=== PATIENT | female | born 1985 | race African-American/Black ===

== ENCOUNTER 2023-05-07 06:16 | Inpatient (IN) | payer MEDICAID ==
[2023-05-07] MEDS ORDERED: AMPICILLIN 2GM+NS 100ML 100 ML IV ONE (06:23)
[2023-05-07] MEDS ORDERED: AMPICILLIN 2GM+NS 100ML 100 ML IV SCH (06:30)
[2023-05-07] MEDS ORDERED: OXYTOCIN-LR 30 UNITS/500ML 500 ML IV SCH ×3 (06:30→23:00)
[2023-05-07 07:20] LABS: APPEARANCE,URINE CLOUDY (CLEAR); BILIRUBIN,URINE NEGATIVE (NEGATIVE); COLOR,URINE LIGHT-YELLOW (YELLOW); GLUCOSE, URINE (UA) NEGATIVE (NEGATIVE); KETONES,URINE NEGATIVE (NEGATIVE); LEUKOCYTE ESTERASE ,URINE 250 Leu/uL (NEGATIVE); NITRATE,URINE NEGATIVE (NEGATIVE); OCCULT BLOOD,URINE NEGATIVE (NEGATIVE); PH,URINE 6.5 (5.0-8.0); PROTEIN,URINE NEGATIVE (NEGATIVE); UROBILINOGEN,URINE 0.2 mg/dL (0.2-1.0)
[2023-05-07] MEDS ORDERED: LACTATED RINGERS 500 ML 500 ML IV PRN (07:30)
[2023-05-07] MEDS ORDERED: NALOXONE HCL 0.4 MG/1 ML ML IV PRN (07:30)
[2023-05-07] MEDS ORDERED: PROMETHAZINE HCL 25 MG/ML 1ML AMPULE IM PRN (07:30)
[2023-05-07] MEDS ORDERED: EPHEDRINE SULFATE 50 MG/ML AMPULE IVP PRN (07:30)
[2023-05-07] MEDS ORDERED: MEPERIDINE-PF 50 MG/ML SYG IM PRN (07:30)
[2023-05-07 07:32] LABS: ADD UA MICROSCOPIC YES
[2023-05-07 07:35] LABS: HEMATOCRIT 35.7 % (36-48); MEAN CORPUSCULAR HEMOGLOBIN 28.9 pg (27.0-33.0); MEAN CORPUSCULAR HGB CONC 33.9 g/dL (32.0-36.0); MEAN CORPUSCULAR VOLUME 85.4 fL (79-99); RED BLOOD CELL COUNT(AUTO) 4.18 MIL/uL (4.00-5.50); RED CELL DISTRIBUTION WIDTH 14.8 % (11.0-15.5); WHITE BLOOD COUNT (AUTO) 5.8 K/uL (4.8-10.8)
[2023-05-07 07:35] LABS: BACTERIA,URINE RARE /HPF (None Seen); MUCUS,URINE RARE LPF (None Seen); RBC,URINE 0-1 /HPF (0-1); SQUAMOUS EPITHELIAL CELL,UR MANY /HPF (0-2)
[2023-05-07] MEDS: AMPICILLIN 1GM+NS 50ML 50 ML IV SCH ×3 (12:24→20:34)
[2023-05-07] MEDS: LACTATED RINGERS 1000ML 1,000 ML IV PRN ×2 (12:24→15:22)
[2023-05-07] MEDS: ROPIVACAINE 0.2% 100ML VIAL 100 ML EP SCH ×2 (15:22→22:22)
[2023-05-07] MEDS ORDERED: MISOPROSTOL 200 MCG TABLET ONE (21:25)
[2023-05-07] MEDS ORDERED: METHYLERGONOVINE MALEATE 0.2 MG/1 ML ML ONE (21:26)
[2023-05-07] MEDS ORDERED: CARBOPROST TROMETHAMINE 250 MCG/ML AMP IM ONE (21:27)
[2023-05-07] MEDS ORDERED: DIPH,PERTUSS(ACELL),TET VAC/PF 0.5 ML VIAL IM PRN (23:00)
[2023-05-07] MEDS ORDERED: LANOLIN 30GM OINTMENT TP PRN (23:00)
[2023-05-07] MEDS ORDERED: ACETAMINOPHEN 325 MG TAB PO PRN (23:00)
[2023-05-07] MEDS ORDERED: MEASLES/MUMPS/RUBELLA VACCINE, LIVE 0.5 ML/VIAL SQ PRN (23:00)
[2023-05-07] MEDS ORDERED: BENZOCAINE/LANOLIN/ALOE VERA 60 ML AEROSOL TP PRN (23:00)
[2023-05-07] MEDS ORDERED: WITCH HAZEL 1 PAD TP PRN (23:00)
[2023-05-07] MEDS: MISOPROSTOL 200 MCG TABLET VG SCH (23:30)
[2023-05-08] MEDS: MISOPROSTOL 200 MCG TABLET VG SCH (00:04)
[2023-05-08] MEDS: IBUPROFEN 600 MG TABLET PO PRN ×2 (01:26→07:48)
[2023-05-08 04:00] VITALS: BP 119/71; PULSE 87; RESP 18
[2023-05-08] MEDS: AMPICILLIN 1GM+NS 50ML 50 ML IV SCH ×2 (05:28→15:11)
[2023-05-08] MEDS ORDERED: PREN-154 PO (05:30)
[2023-05-08 07:04] VITALS: BP 94/63; PULSE 65; RESP 18
[2023-05-08] MEDS: DOCUSATE SODIUM 100 MG CAP PO SCH ×2 (07:48→19:45)
[2023-05-08 08:10] LABS: MEAN CORPUSCULAR HEMOGLOBIN 28.9 pg (27.0-33.0); MEAN CORPUSCULAR HGB CONC 34.4 g/dL (32.0-36.0); RED BLOOD CELL COUNT(AUTO) 3.81 MIL/uL (4.00-5.50); RED CELL DISTRIBUTION WIDTH 14.6 % (11.0-15.5); WHITE BLOOD COUNT (AUTO) 11.6 K/uL (4.8-10.8)
[2023-05-08 08:15] LABS: HEPATITIS Bs ANTIGEN SCREEN P Negative (Negative)
[2023-05-08] MEDS: ACETAMINOPHEN WITH CODEINE 1 TAB TAB PO PRN ×3 (09:57→19:46)
[2023-05-08 12:10] VITALS: BP 124/74; PULSE 75; RESP 18
[2023-05-08 16:16] VITALS: BP 109/74; PULSE 77; RESP 18
[2023-05-08 19:30] VITALS: BP 103/64; PULSE 70; RESP 17
[2023-05-08 23:19] VITALS: BP 91/50; PULSE 61; RESP 17
[2023-05-09] MEDS: IBUPROFEN 600 MG TABLET PO PRN (03:10)
[2023-05-09 03:32] VITALS: BP 99/61; PULSE 64; RESP 18
[2023-05-09 07:53] VITALS: BP 120/69; PULSE 71; RESP 18
[2023-05-09] MEDS: DOCUSATE SODIUM 100 MG CAP PO SCH (08:51)
[2023-05-09] MEDS: ACETAMINOPHEN WITH CODEINE 1 TAB TAB PO PRN (08:53)
[2023-05-09] MEDS ORDERED: DOCU-116 PO (10:12)
[2023-05-09] MEDS ORDERED: IBUP-2077 PO (10:13)
[2023-05-09 11:36] VITALS: BP 112/62; PULSE 105; RESP 18
[2023-05-09 11:38] VITALS: BP 117/68; PULSE 70; RESP 18
== END 2023-05-09 13:40 | disposition home or self-care (01) | DRG 560 ==
LOC: LDH 06:16 → WSH 05-08 03:05
PROVIDERS: ADMIT Obstetrics & Gynecology; ATTEND Obstetrics & Gynecology
PROC: 10E0XZZ Delivery of Products of Conception, External Approach (ICD-10-PCS; principal; 2023-05-07)
DX: O48.0 Post-term pregnancy (principal); Z37.0 Single live birth; O69.81X0 Labor and delivery complicated by cord around neck, without compression, not applicable or unspecified; Z3A.42 42 weeks gestation of pregnancy; O99.824 Streptococcus B carrier state complicating childbirth
CPT/HCPCS: 36415; 81001; 85027; 86592; 86850; 86900; 86901; 87088; 87340; A4314; G0378; J0290; J2210; J2795; J3490